=== PATIENT | female | born 1995 | race Asian ===

== ENCOUNTER 2024-02-19 08:17 | Outpatient (REF) | payer OTHER, SELFPAY ==
--- NOTE | ~2024-02-19 | US_ITS ---
EXAMINATION: US PELVIS CLINICAL INFORMATION: DYSMENORRHEA COMPARISON: None available. TECHNIQUE: Ultrasound of the pelvis is performed using both transabdominal and transvaginal transducers along with Doppler. Transvaginal imaging is performed due to inadequate visualization transabdominally. FINDINGS: Uterus: The uterus is anteverted and measures 9.7 x 4.9 x 5.2 in the sagittal, AP and transverse dimensions. Two fibroids are noted. A subserosal fibroid along the right aspect of the uterine fundus measures 1 x 1.1 x 1.2 cm. Another subserosal fibroid along the posterior uterine body measures 1.8 x 2 x 2.1 cm. The endometrium is mildly thickened measuring 1.7 cm. There is asymmetric slightly increased vascularity along the anterior uterine myometrium series 1 image 33. Adnexa: Both ovaries are visualized. There is normal color flow to the adnexa. Right ovary measures 2.2 x 2.8 x 2.3 cm. Left ovary measures 3.7 x 3.4 x 2.6 cm. A dominant follicle/simple cyst in the left ovary measures 1.9 x 2.1 x 1.6 cm for which no dedicated follow-up imaging is required. US/US pelvic and transvaginal IMPRESSION: 1. Small uterine fibroids as detailed. 2. Mildly thickened endometrium. Correlation with direct visualization can be considered as clinically indicated. 3. Asymmetric slightly increased vascularity along the anterior uterine myometrium without definite myometrial thickening. Further evaluation with MRI pelvis can be considered if there is clinical concern for adenomyosis.
== END 2024-02-19 08:18 | disposition home or self-care (01) ==
LOC: HO.UMASIMG 08:17
PROVIDERS: Visit Provider Nurse Practitioner Women's Health
DX: N94.6 Dysmenorrhea, unspecified (principal)
CPT/HCPCS: 76830; 76856